=== PATIENT | female | born 1935 | race African-American/Black ===

== ENCOUNTER 2016-12-24 21:44 | Inpatient (IN) | payer OTHER ==
[~2016-12-24] VITALS: Ht 165.1 cm; Wt 69.5 kg
[2016-12-24] MEDS ORDERED: IPRATROPIUM BROMIDE (0.02%) 0.5MG/2.5ML NEB HHN STA (21:50)
[2016-12-24] MEDS ORDERED: METHYLPREDNISOLONE SOD SUCC 125 MG/2 ML VIAL IV STA (21:50)
[2016-12-24] MEDS ORDERED: MAGNESIUM 2 G PREMIX 50 ML IV STA (21:50)
[2016-12-24] MEDS ORDERED: ALBUTEROL (0.083%) 2.5MG/3ML NEB HHN STA (21:50)
[2016-12-24] MEDS ORDERED: SODIUM CHLORIDE 0.9% 1,000 ML IV ONE (21:54)
[2016-12-24] MEDS ORDERED: LORAZEPAM 2MG/ML CPJ IV ONE (22:15)
[2016-12-24] MEDS ORDERED: PROPOFOL 10MG/ML 100ML 100 ML IV SCH (22:15)
[2016-12-24 22:24] LABS: HEMATOCRIT. 37.7 % (36.0-48.0); HEMOGLOBIN. 12.2 g/dL (12.0-16.0); MEAN CORPUSCULAR HEMOGLOBIN 29.7 pg (28.0-32.0); MEAN CORPUSCULAR VOLUME 91.7 fL (81.0-99.0); MEAN PLATELET VOLUME 7.4 fl (7.4-10.4); PLATELET 128 x1000/uL (130-400); RED BLOOD CELL COUNT 4.11 mill/uL (4.2-5.4); RED CELL DISTRIBUTION WIDTH 15.6 % (11.6-14.6)
[2016-12-24 22:32] LABS: INR 2.4; PARTIAL THROMBOPLASTIN TIME 30.4 sec (24.0-34.0); PROTHROMBIN TIME 24.9 sec
[2016-12-24 22:40] LABS: CARBON DIOXIDE 34 mEq/L (21-32); CHLORIDE 100 mEq/L (98-107); TROPONIN I 0.06 ng/mL (0.00-0.04)
[2016-12-24 22:54] LABS: PLATELET ESTIMATE SLIGHTLY DECREASED
[2016-12-24] MEDS ORDERED: DEXTROSE 50% WATER 50ML SYRINGE IV ONE (23:00)
[2016-12-24] MEDS ORDERED: SODIUM BICARBONATE 8.4% 1 MEQ/ML 50ML SYR IV ONE (23:00)
[2016-12-24] MEDS ORDERED: INSULIN REGULAR (HUMULIN R) 300UNITS/3ML IV ONE (23:00)
[2016-12-24] MEDS ORDERED: CALCIUM CHLORIDE 1GM/10ML SYR IV ONE (23:00)
[2016-12-24] MEDS ORDERED: LEVOFLOXACIN 500MG PREMIX 100 ML IV ONE (23:30)
[2016-12-24] MEDS ORDERED: ACETAMINOPHEN 325MG TABLET PO PRN (23:30)
[2016-12-24] MEDS ORDERED: GUAIFENESIN 200MG/10ML SUGAR FREE UDC PO PRN (23:30)
[2016-12-24] MEDS ORDERED: MAGNESIUM/ALUMINUM HYDROXIDE/SIMETHICONE 30ML UDC PO PRN (23:30)
[2016-12-24] MEDS ORDERED: HYDROMORPHONE HCL/PF 2MG/ML CPJ IV PRN (23:30)
[2016-12-24] MEDS ORDERED: DOCUSATE SODIUM 100MG CAPSULE PO PRN (23:30)
[2016-12-24] MEDS ORDERED: DIPHENHYDRAMINE 50MG/ML VIAL IV PRN (23:30)
[2016-12-24] MEDS ORDERED: LORAZEPAM 2MG/ML CPJ IV PRN (23:30)
[2016-12-24] MEDS ORDERED: ONDANSETRON HCL 4MG/2ML VIAL IV PRN (23:30)
[2016-12-24] MEDS ORDERED: HYDROCODONE/ACETAMINOPHEN 5/325MG TABLET PO PRN (23:30)
[2016-12-24] MEDS ORDERED: IPRATROPIUM/ALBUTEROL 0.5-3(2.5)MG/3ML NEB INH PRN (23:30)
[2016-12-24] MEDS ORDERED: NA PHOS,M-B/NA PHOS,DI-BA ENEMA 118ML PR PRN (23:30)
[2016-12-25 00:01] LABS: CLARITY URINE CLOUDY (CLEAR); COLOR URINE DARK YELLOW (YELLOW); KETONES URINE NEGATIVE (NEGATIVE); LEUKOCYTE ESTERASE URINE NEGATIVE (NEGATIVE); NITRITE URINE NEGATIVE (NEGATIVE); OCCULT BLOOD URINE 2+ (NEGATIVE); PH URINE 5.5 (4.5-8.0); PROTEIN URINE 2+ (NEGATIVE); SPECIFIC GRAVITY URINE 1.019 (1.005-1.030)
[2016-12-25 00:55] LABS: BG BASE EXCESS 1.4 mmol/L (-2.0-2.0); BG CARBOXYHEMOGLOBIN 0.3 % (0.5-1.5); BG DEOXYHEMOGLOBIN 0.7 % (0.0-5.0); BG FRACTION INSPIRED OXYGEN 100; BG HCO3 ACT 27.2 mmol/L (22.0-26.0); BG METHEMOGLOBIN 0.3 % (0.0-1.5); BG OXYGEN SATURATION 99.3 % (92.0-98.5); BG OXYHEMOGLOBIN 98.7 % (94.0-97.0); BG PCO2 48.2 mmHg (35.0-45.0); BG PH 7.369 (7.350-7.450); BG PO2 271.9 mmHg (75.0-100.0); BG SAMPLE SITE LEFT BRACHIAL; BG TIDAL VOLUME(mL) 550 mL; BG TOTAL HEMOGLOBIN 11.6 g/dL (12.0-18.0); BG VENT MODE VENT - A/C; BG VENT RATE 14 set
[2016-12-25] MEDS: DEXT 5%/0.45% NACL 1000ML 1,000 ML IV SCH (03:37)
[2016-12-25] MEDS: METHYLPREDNISOLONE SOD SUCC 125 MG/2 ML VIAL IV SCH ×3 (05:50→18:24)
[2016-12-25 05:51] LABS: HEMATOCRIT. 33.5 % (36.0-48.0); HEMOGLOBIN. 11.1 g/dL (12.0-16.0); MEAN CORPUSCULAR HEMOGLOBIN 30.2 pg (28.0-32.0); MEAN CORPUSCULAR VOLUME 91.2 fL (81.0-99.0); MEAN PLATELET VOLUME 8.4 fl (7.4-10.4); PLATELET 85 x1000/uL (130-400); RED BLOOD CELL COUNT 3.68 mill/uL (4.2-5.4); RED CELL DISTRIBUTION WIDTH 15.3 % (11.6-14.6)
[2016-12-25 06:16] LABS: CARBON DIOXIDE 29 mEq/L (21-32); CHLORIDE 103 mEq/L (98-107); HDL CHOLESTEROL 65 mg/dL (40-59); LDL CHOLESTEROL 84 mg/dL (5-100); T4 FREE 1.05 ng/dL (0.76-1.46)
[2016-12-25] MEDS ORDERED: ETOMIDATE 2MG/ML 10ML VIAL IV ONE ×2 (08:13→08:14)
[2016-12-25] MEDS ORDERED: LEVOFLOXACIN 500MG PREMIX 100 ML IV SCH (09:30)
[2016-12-25 09:52] LABS: BG BASE EXCESS 3.7 mmol/L (-2.0-2.0); BG CARBOXYHEMOGLOBIN 0.3 % (0.5-1.5); BG DEOXYHEMOGLOBIN 1.5 % (0.0-5.0); BG HCO3 ACT 28.1 mmol/L (22.0-26.0); BG METHEMOGLOBIN 0.2 % (0.0-1.5); BG OXYGEN SATURATION 98.5 % (92.0-98.5); BG PH 7.444 (7.350-7.450); BG PO2 121.1 mmHg (75.0-100.0); BG SAMPLE SITE RIGHT BRACHIAL; BG TIDAL VOLUME(mL) 550 mL; BG TOTAL HEMOGLOBIN 11.7 g/dL (12.0-18.0); BG VENT MODE VENT - A/C; BG VENT RATE 12 set
[2016-12-25] MEDS: FUROSEMIDE 40MG/4ML VIAL IV SCH (10:03)
[2016-12-25] MEDS: ASPIRIN 81MG EC TABLET PO SCH (10:03)
[2016-12-25] MEDS: PANTOPRAZOLE SODIUM 40 MG/VIAL IV SCH (10:04)
[2016-12-25 10:10] LABS: PLATELET ESTIMATE SLIGHTLY DECREASED
[2016-12-25] MEDS: PROPOFOL 10MG/ML 100ML 100 ML IV PRN ×2 (10:43→21:31)
[2016-12-25] MEDS: IPRATROPIUM/ALBUTEROL 0.5-3(2.5)MG/3ML NEB HHN SCH ×3 (12:06→20:05)
[2016-12-25] MEDS ORDERED: OMEP20CA10 PO (16:05)
[2016-12-25] MEDS ORDERED: FURO-152 PO (16:05)
[2016-12-25] MEDS ORDERED: ATOR40TA70 PO (16:05)
[2016-12-25] MEDS ORDERED: WARF5TAB73 PO (16:05)
[2016-12-25] MEDS ORDERED: ADVAIR INH (16:05)
[2016-12-25] MEDS ORDERED: LISI40TA4 PO (16:05)
[2016-12-25] MEDS ORDERED: TIOT18CA3 IH (16:05)
[2016-12-25] MEDS ORDERED: FLUT16SP15 NS (16:05)
[2016-12-25] MEDS ORDERED: POTA10TA15 PO (16:05)
[2016-12-25] MEDS: LEVOFLOXACIN 250MG PREMIX 50 ML IV SCH (23:10)
[2016-12-26] MEDS: METHYLPREDNISOLONE SOD SUCC 125 MG/2 ML VIAL IV SCH ×2 (01:11→05:59)
[2016-12-26] MEDS: IPRATROPIUM/ALBUTEROL 0.5-3(2.5)MG/3ML NEB HHN SCH ×7 (04:08→23:58)
[2016-12-26] MEDS: PROPOFOL 10MG/ML 100ML 100 ML IV PRN (04:36)
[2016-12-26] MEDS: DEXT 5%/0.45% NACL 1000ML 1,000 ML IV SCH (04:37)
[2016-12-26] MEDS: CLONIDINE 0.1MG TABLET PO PRN (04:40)
[2016-12-26 05:26] LABS: HEMATOCRIT. 37.2 % (36.0-48.0); HEMOGLOBIN. 12.4 g/dL (12.0-16.0); MEAN CORPUSCULAR VOLUME 89.8 fL (81.0-99.0); MEAN PLATELET VOLUME 8.5 fl (7.4-10.4); PLATELET 117 x1000/uL (130-400); RED BLOOD CELL COUNT 4.14 mill/uL (4.2-5.4); RED CELL DISTRIBUTION WIDTH 15.6 % (11.6-14.6)
[2016-12-26 05:50] LABS: CARBON DIOXIDE 28 mEq/L (21-32); CHLORIDE 103 mEq/L (98-107)
[2016-12-26 07:11] LABS: PLATELET ESTIMATE SLIGHTLY DECREASED
[2016-12-26 07:43] LABS: BG BASE EXCESS 7.9 mmol/L (-2.0-2.0); BG CARBOXYHEMOGLOBIN 0.3 % (0.5-1.5); BG DEOXYHEMOGLOBIN 3.6 % (0.0-5.0); BG FRACTION INSPIRED OXYGEN 35; BG METHEMOGLOBIN 0.8 % (0.0-1.5); BG OXYGEN SATURATION 96.4 % (92.0-98.5); BG OXYHEMOGLOBIN 95.3 % (94.0-97.0); BG PO2 85.3 mmHg (75.0-100.0); BG SAMPLE SITE RIGHT BRACHIAL; BG TIDAL VOLUME(mL) 550 mL; BG TOTAL HEMOGLOBIN 12.6 g/dL (12.0-18.0); BG VENT MODE VENT - A/C; BG VENT RATE 12 set
[2016-12-26] MEDS: FUROSEMIDE 40MG/4ML VIAL IV SCH (09:01)
[2016-12-26] MEDS: ASPIRIN 81MG EC TABLET PO SCH (09:01)
[2016-12-26] MEDS: PANTOPRAZOLE SODIUM 40 MG/VIAL IV SCH (09:01)
[2016-12-26 09:05] LABS: T4 FREE 1.04 ng/dL (0.76-1.46)
[2016-12-26 09:15] LABS: D-DIMER 3.95 mg/L FEU (<0.50); INR 2.6; PROTHROMBIN TIME 26.8 sec
[2016-12-26] MEDS ORDERED: WARFARIN SODIUM 2MG TABLET PO ONE (11:30)
[2016-12-26] MEDS: METHYLPREDNISOLONE SOD SUCC 40 MG/ML VIAL IV SCH ×2 (14:39→21:21)
[2016-12-26 15:20] LABS: CREATINE KINASE MB FRACTION 1.4 ng/mL (0.5-3.6); TROPONIN I 0.07 ng/mL (0.00-0.04)
[2016-12-26] MEDS ORDERED: MORPHINE SULFATE 4 MG/ML CPJ (NOT FOR IM USE) IV PRN ×2 (16:00)
[2016-12-26] MEDS ORDERED: CARVEDILOL 3.125 MG TABLET PO SCH (21:00)
[2016-12-26 23:47] LABS: CREATINE KINASE MB FRACTION 1.1 ng/mL (0.5-3.6); TROPONIN I 0.09 ng/mL (0.00-0.04)
[2016-12-26] MEDS: LEVOFLOXACIN 250MG PREMIX 50 ML IV SCH (23:51)
[2016-12-27] MEDS: CLONIDINE 0.1MG TABLET PO PRN (00:38)
[2016-12-27 02:15] VITALS: BP 162/91
== END 2016-12-27 03:51 | disposition short-term general hospital (02) | DRG 208 ==
LOC: ER 21:51 → CVICU 22:08 → EDBEDREQ 22:13 → EDBEDREQTM 22:13 → CANRESERV 22:50 → ENRESERV 22:50
PROVIDERS: ADMIT Internal Medicine; ATTEND Internal Medicine
PROC: 5A1945Z Respiratory Ventilation, 24-96 Consecutive Hours (ICD-10-PCS; principal; 2016-12-24)
PROC: 0BH17EZ Insertion of Endotracheal Airway into Trachea, Via Natural or Artificial Opening (ICD-10-PCS; 2016-12-24)
DX: J96.01 Acute respiratory failure with hypoxia (principal); G93.41 Metabolic encephalopathy; N17.0 Acute kidney failure with tubular necrosis; E46 Unspecified protein-calorie malnutrition; I48.92 Unspecified atrial flutter; J44.1 Chronic obstructive pulmonary disease with (acute) exacerbation; J84.9 Interstitial pulmonary disease, unspecified; R65.10 Systemic inflammatory response syndrome (SIRS) of non-infectious origin without acute organ dysfunction; D64.9 Anemia, unspecified; D69.6 Thrombocytopenia, unspecified; E78.00 Pure hypercholesterolemia, unspecified; E78.5 Hyperlipidemia, unspecified; E87.5 Hyperkalemia; I11.0 Hypertensive heart disease with heart failure; I25.10 Atherosclerotic heart disease of native coronary artery without angina pectoris; I48.91 Unspecified atrial fibrillation; I50.9 Heart failure, unspecified; Z79.51 Long term (current) use of inhaled steroids; Z78.1 Physical restraint status; Z79.899 Other long term (current) drug therapy; Z86.73 Personal history of transient ischemic attack (TIA), and cerebral infarction without residual deficits; Z95.2 Presence of prosthetic heart valve
CPT/HCPCS: 31500; 36415; 36600; 43753; 70450; 71010; 80048; 80053; 80061; 81001; 81003; 82375; 82550; 82553; 82805; 82962; 83036; 83605; 83690; 83880; 84439; 84443; 84478; 84484; 85025; 85379; 85610; 85730; 87040; 87070; 87077; 87086; 87186; 93005; 93306; 93970; 94002; 94003; 94640; 94644; 96365; 96375; 99291; C9113; J1815; J1940; J1956; J2060; J2405; J2704; J2920; J2930; J3475; J3490; J7030; J7050; J7611; J7620; A4315